=== PATIENT | male | born 1950 | race Caucasian/White ===

== ENCOUNTER 2018-08-12 14:47 | Outpatient (CLI) | payer MEDICARE, OTHER ==
[2018-08-12 16:48] LABS: Band 2 % (5-11); Hemoglobin 13.9 g/dL (14.0-18.0); Lymphocytes 9 % (21-51); MDiff Complete? YES; Mean Corpuscular HGB CONC 32.7 g/dL (32.0-36.0); Mean Corpuscular Hemoglobin 33.6 pg (27.0-31.0); Mean Platelet Volume 7.5 fL (7.4-10.4); Monocytes 8 % (0-10); Neutrophil 79 % (42-75); Platelet Count 316 thou/uL (130-400); Platelet Morphology Comment Appears Adequate; RBC Distribution Width 11.4 % (11.5-14.5); Reactive Lymphocytes 1 % (0-10); Red Blood Cell (RBC) Count 4.14 mill/uL (4.70-6.10); White Blood Cell (WBC) Count 6.7 thou/uL (4.8-10.8)
[2018-08-12 16:57] LABS: ALT (SGPT) 246 U/L (8-55); AST (SGOT) 107 U/L (5-34); Albumin 3.6 g/dL (3.4-4.8); Alkaline Phosphatase 478 U/L (40-150); Anion Gap 14 mmol/L (10-20); BUN (Urea Nitrogen) 13 mg/dL (8.4-25.7); Bilirubin, Direct 0.9 mg/dL (0.1-0.3); Bilirubin, Total 1.4 mg/dL (0.2-1.2); Calc. Creatinine Clearance 0 mL/min (70-130); Calcium 9.1 mg/dL (7.8-10.44); Carbon Dioxide 27 mmol/L (23-31); Chloride 106 mmol/L (98-107); Estimated GFR-MDRD 74; Glucose 86 mg/dL (80-115); Potassium 4.3 mmol/L (3.5-5.1); Protein, Total 6.3 g/dL (5.8-8.1); Sodium 143 mmol/L (136-145)
--- NOTE | 2018-08-15 16:33 | EKG ---
Test Reason : Blood Pressure : / mmHG Vent. Rate : 077 BPM Atrial Rate : 077 BPM P-R Int : 134 ms QRS Dur : 094 ms QT Int : 384 ms P-R-T Axes : 052 067 041 degrees QTc Int : 434 ms Normal sinus rhythm Normal ECG No previous ECGs available Confirmed by DR. Alma NGUYEN ([id number]) on 08/15/2018 4:33:14 PM Referred By: SALO Confirmed By:DR. Alma NGUYEN
== END 2018-08-12 14:48 | disposition home or self-care (01) ==
LOC: LABBT 14:47
PROVIDERS: ATTEND Surgery
DX: Z01.818 Encounter for other preprocedural examination (principal); K80.20 Calculus of gallbladder without cholecystitis without obstruction
CPT/HCPCS: 80048; 80076; 85025; 93005; 93010

== ENCOUNTER 2018-08-21 05:54 | Day surgery (SDC) | payer MEDICARE, OTHER ==
[2018-08-12 15:18] VITALS: BMI 30.5
[2018-08-21] MEDS ORDERED: Fentanyl 100 MCG/2 ML VIAL ONE ×2 (06:19→08:42)
[2018-08-21] MEDS ORDERED: Midazolam HCl 2 mg/2 ml Vial ONE (06:19)
[2018-08-21] MEDS ORDERED: Bupivacaine/Epinephrine 0.25% 30 ML VIAL ONE (06:31)
[2018-08-21] MEDS ORDERED: Iothalamate Meglumine 60% 50 ML VIAL FS ONE (06:31)
--- NOTE | 2018-08-21 08:30 | RAD ---
INTRAOPERATIVE CHOLANGIOGRAM: Date: 08/21/18 HISTORY: Patient with cholelithiasis. FINDINGS: Single intraoperative cholangiogram is performed. There is catheterization and injection of the cysti c duct. There is free flow of contrast into the common bile duct and into the duodenum. There is some filling of the proximal right and left hepatic ducts. IMPRESSION: No evidence of residual calculi seen in the common bile duct. There is free flow of contrast into the duodenum. POS: [facility]
[2018-08-21] MEDS ORDERED: Promethazine HCl 25 MG/ML VIAL ONE (08:38)
[2018-08-21] MEDS ORDERED: Meperidine HCl/PF 25 MG/ML VIAL ONE (08:38)
--- NOTE | 2018-08-21 10:54 | OP ---
DATE OF PROCEDURE: 08/21/2018 PREOPERATIVE DIAGNOSIS: Symptomatic gallstones with elevation of liver tests. POSTOPERATIVE DIAGNOSIS: Symptomatic gallstones with elevation of liver tests. PROCEDURES PERFORMED: 1. Laparoscopic cholecystectomy with intraoperative cholangiogram. 2. Percutaneous liver biopsy. ANESTHESIA: General. ESTIMATED BLOOD LOSS: Minimal. COMPLICATIONS: None. FINDINGS: Normal cholangiogram. Liver biopsy was taken. SPECIMEN: Gallbladder. Liver biopsy core x3. TECHNIQUE: The patient was taken to the operating room and laid supine on the operating room table. After general anesthetic was obtained, the abdomen was prepped and draped in a sterile fashion. A curved incision was made below the umbilicus. Cautery was used to dissect down to and score the fascia. Abdominal cavity was entered bluntly using a Kassy clamp. Holding stitch of PDS was placed on each side of the fascia. Jesus trocar was placed. High-flow pneumoperitoneum was obtained. Upper midline 5 mm port and two right upper quadrant 5 mm ports were placed in direct visualization. The gallbladder was retracted from the gallbladder fossa. The peritoneum was opened anteriorly and posteriorly. The critical view triangle was seen showing only the cystic duct and cystic artery branching from medial to lateral. There were no other branching structures. A clip was placed high on the cystic duct, and a small ductotomy was made just proximal to that. A cholangiocatheter was brought in through a separate stab incision and placed in the cystic duct, and a cholangiogram was performed, which shows good contrast flow into the duodenum, right and left hepatic duct system. There was no obstruction. Cholangiocatheter was removed. Two clips were placed proximally on the cystic duct. It was cut using laparoscopic scissors. Cystic artery was taken using 2 clips proximally, 1 clipped distally, cut using laparoscopic scissors. Meticulous hemostasis was obtained in the liver bed. There was no ongoing bleeding. No damage to any intraabdominal structures. All port sites were infiltrated using local anesthetic. A liver biopsy was performed using the core needle. Three cores were obtained. Cautery was used to obtain hemostasis at the biopsy site. All port sites were removed under direct visualization without bleeding, and pneumoperitoneum was let down. PDS was used to close the fascial defect below the umbilicus. All incisions were irrigated and closed using 4-0 Monocryl and Dermabond. The patient was sent to Recovery in stable condition. All instrument counts, needle counts, and lap counts were correct. Job ID: [id number]
== END 2018-08-21 15:00 | disposition home or self-care (01) ==
LOC: SDC 05:54
PROVIDERS: ATTEND Surgery
PROC: 0FT44ZZ Resection of Gallbladder, Percutaneous Endoscopic Approach (ICD-10-PCS; principal; 2018-08-21)
PROC: BF10YZZ Fluoroscopy of Bile Ducts using Other Contrast (ICD-10-PCS; 2018-08-21)
PROC: 0FB03ZX Excision of Liver, Percutaneous Approach, Diagnostic (ICD-10-PCS; 2018-08-21)
DX: K80.10 Calculus of gallbladder with chronic cholecystitis without obstruction (principal); K76.0 Fatty (change of) liver, not elsewhere classified; K74.0 Hepatic fibrosis; I10 Essential (primary) hypertension; E78.00 Pure hypercholesterolemia, unspecified; Z96.651 Presence of right artificial knee joint; Z91.040 Latex allergy status; Z88.2 Allergy status to sulfonamides; Z79.899 Other long term (current) drug therapy; Z98.890 Other specified postprocedural states
CPT/HCPCS: 47532; 88304; 88307; 88313; J2175; J2250; J2550; J3010; Q9961